=== PATIENT | male | born 1975 | race Caucasian/White ===

== ENCOUNTER 2023-01-12 14:15 | Outpatient (RCR) | payer OTHER, SELFPAY | END 2023-05-12 23:59 | disposition home or self-care (01) | PROVIDERS: PCP Internal Medicine; Visit Provider Family Medicine | DX: S43.002D Unspecified subluxation of left shoulder joint, subsequent encounter (principal); Z51.89 Encounter for other specified aftercare | CPT/HCPCS: 97110; 97112; 97140; 97161 ==

== ENCOUNTER 2024-04-01 11:54 | Emergency (ER) | payer OTHER, SELFPAY ==
[2024-04-01 12:05] VITALS: BP 121/82; PULSE 88; RESP 20; TEMP 36.9; O2SAT 95; BMI 23.0
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
[2024-04-01 12:42] LABS: HCO3 VBG 28 mmol/L (21-28); PCO2 VBG 44 mmHG (40-50); PO2 VBG 76.1 mmHG (25-47); pH VBG 7.423 (7.32-7.43)
[2024-04-01 12:50] LABS: Basophils Percent Auto 0.1 % (0.0-3.0); Eosinophils Percent Auto 0.8 % (0.0-7.0); Hematocrit 36.9 % (37.0-53.0); Hemoglobin* 12.5 gm/dL (13.5-17.5); Immature Granulocytes Pct Auto 0.1 %; Lymphocytes Percent Auto 9.3 % (20-44); Mean Corpuscular HGB Conc 34 gm/dL (32-36); Mean Corpuscular Hemoglobin 31 pg (26-34); Mean Corpuscular Volume 91 fL (80-100); Monocytes Percent Auto 7.6 % (0.0-11.0); Neutrophils Percent Auto 82.1 % (42.0-72.0); Platelet Count* 207 K/uL (140-440); RDW Coefficient of Variation % 12.8 % (11.5-15.5); Red Blood Count 4.07 m/uL (4.30-5.90); White Blood Count* 13.74 K/uL (4.50-11.00)
[2024-04-01 12:57] LABS: Slide Review Reflex No
[2024-04-01 13:04] LABS: Chloride* 105 mmol/L (96-114)
[2024-04-01 13:05] LABS: Sodium* 138 mmol/L (135-149)
[2024-04-01 13:07] LABS: Creatinine* 0.6 mg/dL (0.5-1.5); Est. Creatinine Clearance* 152.88; Estimated Glomerular Filt Rate 118 ml/min
[2024-04-01 13:08] LABS: Anion Gap 6 mEq/L (7-15); Blood Urea Nitrogen* 17 mg/dL (5-24); Calcium* 8.9 mg/dL (8.4-10.6); Carbon Dioxide* 27 mmol/L (20-32); Glucose* 132 mg/dL (60-115)
[2024-04-01 13:12] LABS: Hemoglobin A1C* 5.4 % (0-5.6)
[2024-04-01 13:27] LABS: Glucose, Point-of-Care* 87 mg/dl (60-115)
--- NOTE | 2024-04-01 13:32 | CRLHL7_ITS ---
For Patients: As a result of the Century Cures Act, medical imaging exams and procedure reports are released immediately into your electronic medical record. You may view this report before your referring provider. If you have questions, please contact your health care provider. Indication: Low back pain, right lower extremity weakness, paresthesias and leukocytosis Technique: Multiplanar, multisequence MR images of the lumbar spine were obtained without the administration of IV contrast. Comparison: CT lumbar spine October 30, 2015 Findings: The lumbar vertebral body heights are grossly maintained with minimal endplate Schmorl`s defects. The normal lordosis is preserved without significant spondylolisthesis. There is mild degenerative disc desiccation with disc height loss and disc protrusions. The vertebral bodies have grossly preserved marrow signal intensity. The conus medullaris terminates at the T12 level and is normal in signal and contour. Cystic changes of the kidneys are appreciated with otherwise preserved paraspinous soft tissues. L1-L2: There is a diffuse disc bulge with small foraminal protrusions. There is mild spinal canal narrowing with mild bilateral neural foraminal narrowing. L2-L3: There is a diffuse disc bulge with mild spinal canal effacement. There is mild bilateral neural foraminal narrowing. L3-L4: There is a diffuse disc bulge with mild spinal canal effacement. There is [id number] left and mild right neural foraminal narrowing. L4-L5: There is a diffuse disc bulge. There is mild bilateral neural foraminal narrowing. L5-S1: There is a diffuse disc bulge with a small central protrusion. There is no significant spinal canal stenosis or neural foraminal narrowing. Impression: Mild multilevel degenerative disc disease changes as described above without evidence of high-grade stenosis or marrow edema to suggest acute fracture. Dictated by Gianni Smith MD @ 04/01/2024 2:54:35 PM (Electronically Signed)
[2024-04-01 15:00] VITALS: BP 150/90; PULSE 90; RESP 18; O2SAT 96
[2024-04-01 15:21] LABS: Appearance Urine Clear (Clear); Bilirubin Urine Negative (Negative); Blood Urine Trace-intact (Negative); Color Urine Yellow (Yellow); Glucose Urine Negative (Negative); Ketones Urine Negative (Negative); Leukocyte Esterase Urine Negative (Negative); Nitrite Urine Negative (Negative); Protein Urine Negative (Negative); Urobilinogen Urine 0.2 (0.2-1.0)
[2024-04-01 15:32] LABS: RBC Urine 0-2 (0-2)
== END 2024-04-01 16:50 | disposition home or self-care (01) ==
PROVIDERS: Emergency Provider Emergency Medicine; PCP Family Medicine
DX: M54.50 Low back pain, unspecified (principal); D72.829 Elevated white blood cell count, unspecified; E16.2 Hypoglycemia, unspecified
CPT/HCPCS: 36415; 72148; 80048; 81001; 82803; 82947; 83036; 85025; 99283

== ENCOUNTER 2024-08-06 07:51 | Outpatient (CLI) | payer OTHER, SELFPAY | END 2024-08-06 07:52 | disposition home or self-care (01) | LOC: INJ CL 07:52 | PROVIDERS: PCP Family Medicine; Visit Provider Family Medicine | DX: M54.16 Radiculopathy, lumbar region (principal); M51.369 Other intervertebral disc degeneration, lumbar region without mention of lumbar back pain or lower extremity pain | CPT/HCPCS: 62323; J0702; Q9966 ==

== ENCOUNTER 2024-11-08 11:52 | Outpatient (CLI) | payer OTHER, SELFPAY ==
--- NOTE | 2024-11-08 12:51 | P.ANES_ITS ---
Anesthesia Charges Start Date/Time Anesthesia Start Date: 11/08/24 Anesthesia Start Time: 13:00 Stop Date/Time Anesthesia Stop Date: 11/08/24 Anesthesia Stop Time: 13:22 Coding CPT Codes CPT Codes: ANES UPR GI NDSC PX NOS - 77697 ([id number]) P2 - PATIENT W/MILD SYST DISEASE, QK - [place]HALT SURFACE HEATER OPERATOR 2-4 CNCRNT ANES PROC, QX - FILLER SHREDDER HELPER SVC W/ MD MED DIRECTION
--- NOTE | 2024-11-08 12:51 | W.ANESCHARGE ---
Anesthesia Charges Start Date/Time Anesthesia Start Date: 11/08/24 Anesthesia Start Time: 13:00 Stop Date/Time Anesthesia Stop Date: 11/08/24 Anesthesia Stop Time: 13:22 Coding CPT Codes CPT Codes: ANES UPR GI NDSC PX NOS - 94746 ([id number]) P2 - PATIENT W/MILD SYST DISEASE, QK - MIDDLE SCHOOL DIRECTOR 2-4 CNCRNT ANES PROC, QX - NOTE TAKER SVC W/ MD MED DIRECTION
--- NOTE | 2024-11-08 13:24 | P.ANES_ITS ---
Anesthesia Charges Start Date/Time Anesthesia Start Date: 11/08/24 Anesthesia Start Time: 13:00 Stop Date/Time Anesthesia Stop Date: 11/08/24 Anesthesia Stop Time: 13:22 Coding CPT Codes CPT Codes: ANES UPR GI NDSC PX NOS - 88742 ([id number]) P2 - PATIENT W/MILD SYST DISEASE, QK - TOLL TICKET CLERK 2-4 CNCRNT ANES PROC, QX - BUS ATTENDANT SVC W/ MD MED DIRECTION
--- NOTE | 2024-11-08 13:24 | W.ANESCHARGE ---
Anesthesia Charges Start Date/Time Anesthesia Start Date: 11/08/24 Anesthesia Start Time: 13:00 Stop Date/Time Anesthesia Stop Date: 11/08/24 Anesthesia Stop Time: 13:22 Coding CPT Codes CPT Codes: ANES UPR GI NDSC PX NOS - 33698 ([id number]) P2 - PATIENT W/MILD SYST DISEASE, QK - JOB TRAINER 2-4 CNCRNT ANES PROC, QX - CLINIC OFFICE COORDINATOR SVC W/ MD MED DIRECTION
== END 2024-11-08 11:53 | disposition home or self-care (01) ==
LOC: OP CLINIC 11:52
PROVIDERS: PCP Family Medicine; Visit Provider Internal Medicine Gastroenterology
DX: R10.13 Epigastric pain (principal); R11.2 Nausea with vomiting, unspecified; R63.4 Abnormal weight loss; K31.89 Other diseases of stomach and duodenum
CPT/HCPCS: 00731; 43239; 88305; J2704; J3490

== ENCOUNTER 2024-11-29 09:40 | Outpatient (CLI) | payer OTHER, SELFPAY ==
--- NOTE | 2024-11-29 11:56 | P.ANES_ITS ---
Anesthesia Charges Start Date/Time Anesthesia Start Date: 11/29/24 Anesthesia Start Time: 11:33 Stop Date/Time Anesthesia Stop Date: 11/29/24 Anesthesia Stop Time: 12:07 Coding CPT Codes CPT Codes: JOSÉ LWR INTST NDSC NOS - 05139 ([id number]) P2 - PATIENT W/MILD SYST DISEASE, QK - SENIOR JAVA PROGRAMMER 2-4 CNCRNT ANES PROC, QX - JAVASCRIPT UI DEVELOPER SVC W/ MD MED DIRECTION
--- NOTE | 2024-11-29 11:56 | W.ANESCHARGE ---
Anesthesia Charges Start Date/Time Anesthesia Start Date: 11/29/24 Anesthesia Start Time: 11:33 Stop Date/Time Anesthesia Stop Date: 11/29/24 Anesthesia Stop Time: 12:07 Coding CPT Codes CPT Codes: JOSÉ LWR INTST NDSC NOS - 53746 ([id number]) P2 - PATIENT W/MILD SYST DISEASE, QK - CRUSHER MACHINE OPERATOR 2-4 CNCRNT ANES PROC, QX - WOOD FINISHER SVC W/ MD MED DIRECTION
--- NOTE | 2024-11-29 12:10 | P.ANES_ITS ---
Anesthesia Charges Start Date/Time Anesthesia Start Date: 11/29/24 Anesthesia Start Time: 11:33 Stop Date/Time Anesthesia Stop Date: 11/29/24 Anesthesia Stop Time: 12:07 Coding CPT Codes CPT Codes: JOSÉ REYEZ INTST NDSC NOS - 09311 ([id number]) P2 - PATIENT W/MILD SYST DISEASE, QX - MAP MOUNTER SVC W/ MD MED DIRECTION, QK - EDUCATIONAL SPECIALIST 2-4 CNCRNT JOSÉ PROC
--- NOTE | 2024-11-29 12:10 | W.ANESCHARGE ---
Anesthesia Charges Start Date/Time Anesthesia Start Date: 11/29/24 Anesthesia Start Time: 11:33 Stop Date/Time Anesthesia Stop Date: 11/29/24 Anesthesia Stop Time: 12:07 Coding CPT Codes CPT Codes: JOSÉ REYEZ INTST NDSC NOS - 49771 ([id number]) P2 - PATIENT W/MILD SYST DISEASE, QX - CROCHETER SVC W/ MD MED DIRECTION, QK - BOX BRANDER 2-4 CNCRNT JOSÉ PROC
== END 2024-11-29 09:41 | disposition home or self-care (01) ==
LOC: OP CLINIC 09:40
PROVIDERS: PCP Family Medicine; Visit Provider Internal Medicine Gastroenterology
DX: Z12.11 Encounter for screening for malignant neoplasm of colon (principal); Z86.0109 Personal history of other colon polyps; K52.9 Noninfective gastroenteritis and colitis, unspecified; D12.2 Benign neoplasm of ascending colon; D12.5 Benign neoplasm of sigmoid colon; D12.8 Benign neoplasm of rectum
CPT/HCPCS: 00811; 00812; 36415; 45380; 45385; 82947; 88305; 93005; 99282; J2704

== ENCOUNTER 2024-11-29 09:55 | Emergency (ER) | payer OTHER, SELFPAY ==
--- OUTSIDE RECORDS SUMMARY | 2024-10-14 07:40 | XMS_ITS | Continuity of Care Document ---
Author Organization [facility] Address [address] [place] [address] Phone Care Team Providers Care Paper Sorter And Counter Name Role Phone Tess Irvin DNP Unavailable Unavailab le Allergies, Adverse Reactions, Alerts Substance Reaction Status Criticality venom-honey bee Active No Informati on lactose Active No Information Medications Medication Instructions Dosage Effective Dates (start - stop) Status Comments Auvelity 45 mg-105 mg tablet, extended release Take 1 Tablet by mouth once daily in the morning for 3 days, THEN 1 Tablet two times daily. - Active lidocaine 5 % topical patch Apply 1 patch to painful area of skin for up to 12 hours within a 24-hour period. - Active buspirone 15 mg tablet Take 0.5 Tablets (7.5 mg) by mouth two times daily for 7 days, THEN 1 Tablet (15 mg) two times daily for 7 days, THEN 2 Tablets (30 mg) two times daily. - Active fluvoxamine 100 mg tablet Take 2 Tablets (200 mg) by mouth once daily. - Active Lipitor 10 mg tablet take 3 tablet by oral route every day 30 MG - Active Topamax 25 mg tablet as needed - Active trazodone 50 mg tablet take 1 tablet before bed - Active FENOFIBRATE (unknown strength) Not Available - Active prednisone 20 mg tablet Take 1 Tablet (20 mg) by mouth three times daily with meals for 4 days, THEN 1 Tablet (20 mg) two times daily with meals for 4 days, THEN 1 Tablet (20 mg) once daily with a meal for 4 days. - No Longer Active topiramate 25 mg tablet take 1 tablet by mouth every evening for 1 week, then increase to 1 tablet twice daily - No Longer Active gabapentin 600 mg tablet take 2 tablet by oral route 3 times every day 1200 MG - No Longer Active RISPERIDONE (unknown strength) take 2 tablet by oral route 2 times every day Not Available - No Longer Active FISH OIL (unknown strength) Not Available - No Longer Active LIPITOR (unknown strength) Not Available - No Longer Active trazodone 50 mg tablet take 0.5 tablet by oral route at - No Longer Active Procedures Procedure Date OFFICE/OUTPATIENT VISIT, EST Drug Urine Toxology With Chromatography Drug test def 02-13 classes Foll-up eval q3mo opiod tx OFFICE/OUTPATIENT VISIT, EST Foll-up eval q3mo opiod tx OFFICE VISIT, EST TELEMEDICINE OFFICE VISIT, EST TELEMEDICINE Foll-up eval q3mo opiod tx OFFICE VISIT, EST TELEMEDICINE 20 Foll-up eval q3mo opiod tx OFFICE VISIT, EST TELEMEDICINE 20 Foll-up eval q3mo opiod tx Foll-up eval q3mo opiod tx OFFICE VISIT, EST TELEMEDICINE OFFICE VISIT, EST TELEMEDICINE 20 Foll-up eval q3mo opiod tx OFFICE VISIT, EST TELEMEDICINE 20 Foll-up eval q3mo opiod tx Foll-up eval q3mo opiod tx OFFICE VISIT, EST TELEMEDICINE 20 Foll-up eval q3mo opiod tx OFFICE VISIT, EST TELEMEDICINE Foll-up eval q3mo opiod tx OFFICE VISIT, EST TELEMEDICINE OFFICE/OUTPATIENT VISIT, EST OFFICE/OUTPATIENT VISIT, EST Drug Urine Toxology With Chromatography OFFICE/OUTPATIENT VISIT, EST OFFICE/OUTPATIENT VISIT, EST OFFICE/OUTPATIENT VISIT, EST OFFICE/OUTPATIENT VISIT, EST OFFICE/OUTPATIENT VISIT, EST OFFICE/OUTPATIENT VISIT, EST OFFICE/OUTPATIENT VISIT, EST OFFICE/OUTPATIENT VISIT, EST OFFICE/OUTPATIENT VISIT, EST OFFICE/OUTPATIENT VISIT, EST OFFICE/OUTPATIENT VISIT, EST OFFICE/OUTPATIENT VISIT, EST OFFICE CONSULTATION Advance Directives Directive Yes / No Effective Date File Name No Information Encounters Encounter Description Practice Location Reason(s) For Visit Diagnoses Date Provider Providers Copied on Encounter OFFICE/OUTPAT IENT VISIT, EST [facility], [address], [place], [id number] , [place] [phone] [facility] [place] Widespread pain (chief complaint) Chronic pain syndromeOther cervical disc degeneration, unspecified cervical regionPostlam inectomy syndrome, not elsewhere classifiedLon g term (current) use of opiate analgesicOthe r spondylosis, lumbar region Oct- 5 Albaro Pulido. [address] [facility] [address], [place], [place], [id number], [place]. tel:[phone] Primary Practice Provider: Rome Yadav [facility] [address] [place], [address]. tel:[phone] alist: Hawk Ramos, [facility] [address], [place], [address]. tel:[phone] [address] [place], [address]. tel:[phone] ring Provider: Rome Yadav [facility] [address] [place], [address]. tel:[phone] [facility], [address] [place] [address], [id number] , [place] [phone] [facility] No Information 5 Kim Muller. [address] [place] [address], [id number], [place]. tel:[phone] [place] [address] [facility], [address] [place] [address], [id number] , [place] tel:[phone] [facility] No Information 2 Patterson Artur. Burr, [address] [place], [address], [place]. tel:[phone] OFFICE/OUTPAT IENT VISIT, EST [facility], [address] [place] [address], [id number] , [place] [phone] [facility] Widespread pain (chief complaint) Chronic pain syndromeOther cervical disc degeneration, unspecified cervical regionPostlam inectomy syndrome, not elsewhere classifiedLon g term (current) use of opiate analgesic 2 Yesenia Siddiqui. Burr, [address] [place], [address], [place]. tel:[phone] Primary Practice Provider: Rome Yadav, [facility] [address] [place], [address]. tel:[phone] alist: Hawk Ramos, [facility] [address], [address]. tel:[phone], [address]. tel:[phone] ring Provider: Zeeshan Enriquez, [address] [place] [address], [address]. tel:[phone] OFFICE VISIT, EST TELEMEDICINE [facility], [address] [place] [address], [id number] , [place] tel:[phone] [facility] Widespread pain (chief complaint) Chronic pain syndromeOther cervical disc degeneration, unspecified cervical regionLong term (current) use of opiate analgesicPost laminectomy syndrome, not elsewhere classified 1 Yesenia Leview, [address] [place], [address], [place]. tel:[phone] Referring Provider: Zeeshan Enriquez, [address] [place] [address], [address]. [phone] OFFICE VISIT, EST TELEMEDICINE [facility], [address] [place] [id number] , [place] tel:[phone] [facility] Widespread pain (chief complaint) Chronic pain syndromeOther cervical disc degeneration, unspecified cervical regionLong term (current) use of opiate analgesicPost laminectomy syndrome, not elsewhere classified 0 Yesenia Leview, [address] [place], [address], [place]. tel:[phone] Referring Provider: Zeeshan Enriquez, [address] [place] [address], [address]. [phone] OFFICE VISIT, EST TELEMEDICINE [facility], [address] [place] [address], [id number] , [place] [phone] [facility] Widespread pain (chief complaint) Other cervical disc degeneration, unspecified cervical regionChronic pain syndromeLong term (current) use of opiate analgesicPost laminectomy syndrome, not elsewhere classified 0 Yesenia Leview, [address] [place], [address], [place]. tel:[phone] Referring Provider: Zeeshan Enriquez, [address] [place] [address], [address]. tel:[phone] OFFICE VISIT, EST TELEMEDICINE [facility], [address] [place] [address], [id number] , [place] [phone] [facility] Widespread pain (chief complaint) Postlaminecto my syndrome, not elsewhere classifiedOth er cervical disc degeneration, unspecified cervical regionChronic pain syndromeLong term (current) use of opiate analgesic 0 Patterson Dan. Pittman, [address] [place], [address], [place]. tel:[phone] Referring Provider: Zeeshan Enriquez, [address] [place] [address], [address]. tel:[phone] OFFICE VISIT, EST TELEMEDICINE [facility], [address] [place] [address], [id number] , [place] tel:[phone] [facility] Widespread pain (chief complaint) Postlaminecto my syndrome, not elsewhere classifiedOth er cervical disc degeneration, unspecified cervical regionChronic pain syndromeLong term (current) use of opiate analgesic 0 Patterson Dan. Pittman, [address] [place], [address], [place]. tel:[phone] Referring Provider: Zeeshan Enriquez, [address] [place] [address], [address]. tel:[phone] OFFICE VISIT, EST TELEMEDICINE [facility], [address] [place] [address], [id number] , [place] tel:[phone] [facility] Widespread pain (chief complaint) Postlaminecto my syndrome, not elsewhere classifiedOth er cervical disc degeneration, unspecified cervical regionChronic pain syndromeLong term (current) use of opiate analgesic 0 Patterson Dan. Pittman, [address] [place], [address], [place]. tel:[phone] Referring Provider: Zeeshan Enriquez, [address] [place] [address], [address]. tel:[phone] OFFICE VISIT, EST TELEMEDICINE [facility], [address] [place] [address], [id number] , [place] tel:[phone] [facility] Widespread pain (chief complaint) Postlaminecto my syndrome, not elsewhere classifiedOth er cervical disc degeneration, unspecified cervical regionChronic pain syndromeLong term (current) use of opiate analgesic Dec-2 0- 0 Patterson Dan. Pittman, [address] [place], [address], [place]. tel:[phone] Referring Provider: Zeeshan Enriquez, [address] [place] [address], [address]. tel:[phone] OFFICE VISIT, EST TELEMEDICINE [facility], [address] [place] [address], [id number] , [place] tel:[phone] [facility] Widespread pain (chief complaint) Postlaminecto my syndrome, not elsewhere classifiedOth er cervical disc degeneration, unspecified cervical regionChronic pain syndromeLong term (current) use of opiate analgesic 0 Patterson Artur. Burr, [address] [place], [address], [place]. tel:[phone] Referring Provider: Zeeshan Enriquez, [address] [place] [address], [address]. tel:[phone] OFFICE VISIT, EST TELEMEDICINE [facility], [address] [place] [address], [id number] , [place] tel:[phone] [facility] Widespread pain (chief complaint) Postlaminecto my syndrome, not elsewhere classifiedOth er cervical disc degeneration, unspecified cervical regionChronic pain syndromeLong term (current) use of opiate analgesic 0 Patterson Artur. Burr, [address] [place], [address], [place]. tel:[phone] Primary Practice Provider: Rome Yadav MD, [facility] [address] [place], [address]. tel:[phone] alist: Hawk Ramos, [facility] [address] [place] [address], [place], [address]. tel:[phone] Coronado MD, [address], [address]. tel:[phone] OFFICE VISIT, EST TELEMEDICINE [facility], [address] [place] [address], [id number] , [place] tel:[phone] [facility] Widespread pain (chief complaint) Postlaminecto my syndrome, not elsewhere classifiedOth er cervical disc degeneration, unspecified cervical regionChronic pain syndromeLong term (current) use of opiate analgesic Oct- 0 Patterson Artur. Burr, [address] [place], [place], [facility], [place]. tel:[phone] Primary Practice Provider: Rome Yadav MD, [facility] [address] [place], [address]. tel:[phone] alist: Hawk Ramos, [facility] [address] [place] [address], [address]. tel:[phone] Coronado MD, [address], [address]. tel:[phone] ring Provider: Zeeshan Enriquez, [address] [place] [address], [address]. tel:[phone] OFFICE/OUTPAT IENT VISIT, [facility], [address] [place] [address], [id number] , [place] tel:[phone] [facility] Widespread pain (chief complaint) Other custodial (current) drug therapyPostla minectomy syndrome, not elsewhere classifiedOth er cervical disc degeneration, unspecified cervical regionChronic pain syndrome Aug- 0 Yesenia Siddiqui. Burr, [address] [place], [address], [place]. tel:[phone] Primary Practice Provider: Rome Yadav MD, [facility] [address] [place], [address]. tel:[phone] alist: Hawk Ramos, [facility] [address] [place] [address], [address]. tel:[phone] Coronado MD, [address], [address]. tel:[phone] ring Provider: Zeeshan Enriquez, [address] [place] [address], [address]. tel:[phone] OFFICE/OUTPAT IENT VISIT, EST [facility], [address] [place] [address], [id number] , [place] tel:[phone] [facility] Widespread pain (chief complaint) Postlaminecto my syndrome, not elsewhere classifiedOth er cervical disc degeneration, unspecified cervical regionChronic pain syndromeOther custodial (current) drug therapy 0 Yesenia Siddiqui. Burr, [address] [place], [address], [place]. tel:[phone] Primary Practice Provider: Rome Yadav MD, [facility] [address] [place], [address]. tel:[phone] alist: Hawk Ramos, [facility] [address] [place] [address], [place], [address]. tel:[phone] Coronado MD, [address], [address]. tel:[phone] ring Provider: Zeeshan Enriquez, [address] [place] [address], [address]. tel:[phone] [facility], [address] [place] [address], [id number] , [place] tel:[phone] [facility] No Information 0 9 Gordon Jordan. [address] [place] [address], [id number], [place]. tel:[phone] OFFICE/OUTPAT IENT VISIT, EST [facility], [address] [place] [address], [id number] , [place] tel:[phone] [facility] [place] Widespread pain (chief complaint) Postlaminecto my syndrome, not elsewhere classifiedOth er cervical disc degeneration, unspecified cervical regionChronic pain syndromeOther local company intermodal truck driver (current) drug therapy 9 Gordon Jordan. [address] [place] [address], [id number], [place]. tel:[phone] Primary Practice Provider: Rome Yadav MD, [facility] [address] [place], [address]. tel:[phone] alist: Hawk Ramos, [facility] [address] [place] [address], [address]. tel:[phone] Coronado MD, [address], [address]. tel:[phone] ring Provider: Zeeshan Enriquez, [address] [place] [address], [address]. tel:[phone] OFFICE/OUTPAT IENT VISIT, [facility], [address] [place] [address], [id number] , [place] tel:[phone] [facility] Widespread pain (chief complaint) Other cervical disc degeneration, unspecified cervical regionPostlam inectomy syndrome, not elsewhere classifiedChr onic pain syndrome Azar- 8 Kim Muller. [address] [place] [address], [id number], [place]. tel:[phone] Primary Practice Provider: Rome Yadav MD, [facility] [address] [place], [address]. tel:[phone] alist: Hawk Ramos, [facility] [address] [place] [address], [address]. tel:[phone], [address], [address].Refer ring Provider: Zeeshan Enriquez, [address] [place] [address], [address]. tel:[phone] OFFICE/OUTPAT IENT VISIT, [facility], [address] [place] [address], [id number] , [place] tel:[phone] [facility] Widespread pain (chief complaint) Postlaminecto my syndrome, not elsewhere classifiedChr onic pain syndromeOther cervical disc degeneration, unspecified cervical region Gordon Jordan. [address] [place] [address], [id number], [place]. tel:[phone] Specialist: Hawk Ramos, [facility] [address] [place] [address], [address]. tel:[phone], [address], [address].Refer ring Provider: Zeeshan Enriquez, [address] [place] [address], [address]. tel:[phone] OFFICE/OUTPAT IENT VISIT, EST [facility], [address] [place] [address], [id number] , [place] tel:[phone] [facility] Widespread pain (chief complaint) Postlaminecto my syndrome, not elsewhere classifiedOth er cervical disc degeneration, unspecified cervical regionChronic pain syndrome Apr- Gordon Jordan. [address] [place] [address], [id number], [place]. tel:[phone] Attending Physician: Rome Yadav, [facility] [address] [place], [address]. tel:[phone] alist: Hawk Ramos, [facility] [address] [place] [address], [address]. tel:[phone], [address], [address].Refer ring Provider: Zeeshan Enriquez, [address] [place] [address], [address]. tel:[phone] OFFICE/OUTPAT IENT VISIT, EST [facility], [address] [place] [address], [id number] , [place] tel:[phone] [facility] Widespread pain (chief complaint) Postlaminecto my syndrome, not elsewhere classifiedOth er cervical disc degeneration, unspecified cervical regionChronic pain syndrome Mar- Gordon Jordan. [address] [place] [address], [id number], [place]. tel:[phone] Attending Physician: Rome Yadav [facility] [address] [place], [address]. tel:[phone] alist: Hawk Ramos, [facility] [address] [place] [address], [address]. tel:[phone], [address], [address].Refer ring Provider: Zeeshan Enriquez, [address] [place] [address], [address]. tel:[phone] OFFICE/OUTPAT IENT VISIT, EST [facility], [address] [place] [address], [id number] , [place] tel:[phone] [facility] Widespread pain (chief complaint) Postlaminecto my syndrome, not elsewhere classifiedOth er cervical disc degeneration, unspecified cervical regionChronic pain syndrome Gordon Overbeke Nikki. [address] [place] [address], [id number], [place]. tel:[phone] Attending Physician: Rome Yadav [facility] [address] [place], [address]. tel:[phone] alist: Hawk Ramos, [facility] [place] [address] [place] [address], [address]. tel:[phone], [address], [address].Refer ring Provider: Zeeshan Enriquez, [address] [place] [address], [address]. tel:[phone] OFFICE/OUTPAT IENT VISIT, EST [facility], [address] [place] [address], [id number] , [place] tel:[phone] [facility] Widespread pain (chief complaint) Postlaminecto my syndrome, not elsewhere classifiedOth er cervical disc degeneration, unspecified cervical regionChronic pain syndrome [place] Overbeke Nikki. [address] [place] [address], [id number], [place]. tel:[phone] Referring Provider: Zeeshan Enriquez, [address] [place] [address], [address]. tel:[phone] OFFICE/OUTPAT IENT VISIT, [facility], [address] [place] [address], [id number] , [place] tel:[phone] [facility] Widespread pain (chief complaint) Myositis, unspecifiedCh ronic pain syndromePostl aminectomy syndrome, not elsewhere classifiedTro chanteric bursitis, right hip 6 Mick Barr. [address] [place] [address], [id number], [place]. tel:[phone] Attending Physician: Rome Yadav, [facility] [address] [place], [address]. tel:[phone] alist: Hawk Ramos, [facility] [address] [place] [address], [place], [address]. tel:[phone], [address], [place], [address].Refer ring Provider: Zeeshan Enriquez, [address] [place] [address], [address]. tel:[phone] OFFICE/OUTPAT IENT VISIT, [facility], [address] [place] [address], [id number] , [place] tel:[phone] [facility] Widespread pain (chief complaint) Myositis, unspecifiedCh ronic pain syndromePostl aminectomy syndrome, not elsewhere classified 0 6 Gordon Jordan. [address] [place] [address], [id number], [place]. tel:[phone] Referring Provider: Zeeshan Enriquez, [address] [place] [address], [address]. tel:[phone] OFFICE/OUTPAT IENT VISIT, [facility], [address] [place] [address], [id number] , [place] tel:[phone] [facility] [place] Widespread pain (chief complaint) Myositis, unspecifiedCh ronic pain syndromePostl aminectomy syndrome, not elsewhere classified Gordon Jordan. [address] [place] [address], [id number], [place]. tel:[phone] Referring Provider: Zeeshan Enriquez, [address] [place] [address], [address]. tel:[phone] OFFICE/OUTPAT IENT VISIT, EST [facility], [address] [place] [address], [id number] , [place] [phone] [facility] Widespread pain (chief complaint) Other cervical disc degeneration, unspecified cervical regionOther intervertebra l disc degeneration, lumbar regionChronic pain syndrome 6 Gordon Jordan. [address] [place] [address], [id number], [place]. tel:[phone] Attending Physician: Rome Yadav [facility] [address] [place], [address]. tel:[phone] alist: Hawk Ramos, [facility] [address] [place] [address], [address]. tel:[phone], [address], [address].Refer ring Provider: Zeeshan Enriquez, [address] [place] [address], [address]. tel:[phone] OFFICE/OUTPAT IENT VISIT, EST [facility], [address] [place] [address], [id number] , [place] tel:[phone] [facility] [place] Back Pain (chief complaint) Degeneration of cervical intervertebra l discDegenerat ion of lumbar or lumbosacral intervertebra l discMyalgia and myositis, unspecified No Information Attending Physician: Rome Yadav [facility] [address] [place], [address]. tel:[phone] alist: Hawk Ramos, [facility] [address] [place] [address] [address], [place], [address]. tel:[phone] Provider: Zeeshan Enriquez, [address] [place], [address]. tel:[phone] OFFICE CONSULTATION [facility], [address] [place] [address], [id number] , tel:[phone] [facility] [facility] [place] Back Pain (chief complaint) Degeneration of cervical intervertebra l discPostlamin ectomy syndrome of cervical regionDegener ation of lumbar or lumbosacral intervertebra l discMyalgia and myositis, unspecified 5 No Information Attending Physician: Rome Yadav, [address], [place], [address]. tel:[phone] alist: Hawk Ramos, [facility] [address] [place] [address] [address], [place], [address]. tel:[phone] Provider: Zeeshan Enriquez, [address] [place] [address], [address]. tel:[phone] Family History Family Member Type Diagnosis Age At Onset Father Problem (finding) Back pain Father Problem (finding) Neck pain Payers Payer name Insurance type Covered republican ID James ojeda(s) [facility] [id number] Social History Type Description Quantity Date Captured Comments Alcohol Use Details No Caffeine Use Details Unknown Tobacco Use Status Current non-smoker Smoking Status Never smoker Non-Smoking Tobacco Use Details : No Details Available : No Details Available Sex Male Vital Signs Date / Time: Height Weight BMI Pulse Rate Blood Pressure Temperature Respiratory Rate Body Surface Area Head Circumference Head Circ. Percentile Wt./Cipriano. Percentile BMI percentile Pulse Ox Inhaled Ox 12:32 PM 70.00 in 75.478 kg (166.40 lbs) 23.8 8 kg/m eter (2) Chief Complaint And Reason For Visit From encounter dated '10/14/2024 12:40'. Widespread pain (chief complaint). Description: Severity level is 8. Duration: chronic. The patientdescribes it as sharp, achy and tingling. The problem is worsening. Symptom is aggravated by sitting, standing, walking, bending and reaching. Relieving factors include Rx Meds and pool therapy. Reason For Referral Reason For Referral No Information Plan Of Treatment Date Type Action Status Goal Update Social History. Due o n due Goal PHQ-9. Due on du e Goal Height. Due on d ue Goal Tobacco screening. Due on Ap due Goal FIT. Due on due Goal Weight. Due on d ue Goal CT-Colonography. Due on due Goal Zoster vaccine (1st). Due on due Goal FIT-DNA. Due on due Goal Hepatitis C screening. Due o n due Goal Tobacco Use. Due on due Goal Medication Recon ciliation. Due on due Goal Review Allergy List. Due on due Goal OARS. Due on due Goal Unhealthy drug u se screening. Due on due Goal DIGESTER COOK Paperwork. Due on due Goal Order Annual PT. Due on due Goal Creatinine. Due on 25 due Goal DIRECTOR OF EMPLOYER SERVICES Scanned. Due on due Goal ALT (SGPT). Due on due Goal UDT. Due on due Goal AST (SGOT). Due on due Goal Order Annual PT. Due on due Goal ALT (SGPT). Due on due Goal DIRECTOR OF EMPLOYER SERVICES Scanned. Due on due Goal UDT. Due on due Goal Creatinine. Due on due Goal OARS. Due on due Goal AST (SGOT). Due on due Goal DIGESTER COOK Paperwork. Due on due Goal Review Allergy List. Due on due Goal PHQ-9. Due on du e Goal Weight. Due on d ue Goal Unhealthy drug u se screening. Due on due Goal Lipid panel. Due on due Goal Tobacco Use. Due on due Goal Hepatitis C screening. Due o n due Goal Height. Due on d ue Goal Medication Recon ciliation. Due on due Goal Update Social History. Due o n due Goal Height. Due on d ue Goal Unhealthy drug u se screening. Due on due Goal Review Allergy List. Due on due Goal AST (SGOT). Due on due Goal Lipid panel. Due on due Goal ALT (SGPT). Due on due Goal UDT. Due on due Goal PHQ-9. Due on du e Goal Order Annual PT. Due on due Goal DIRECTOR OF EMPLOYER SERVICES Scanned. Due on due Goal Weight. Due on d ue Goal Creatinine. Due on due Goal OARS. Due on due Goal Tobacco Use. Due on due Goal Update Social History. Due o n due Goal Hepatitis C screening. Due o n due Goal Medication Recon ciliation. Due on due Goal DIGESTER COOK Paperwork. Due on due Referral Ordered: [facility] (related to Myositis, unspecified) ordered Referral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
--- OUTSIDE RECORDS SUMMARY | 2024-10-14 07:40 | XMS_ITS | Continuity of Care Document ---
Author Organization [facility] Address [address] [facility] [place] [address] Phone Care Team Providers Care Business Objects Name Role Phone Tess Irvin DNP Unavailable [...] Copied on Encounter OFFICE/OUTPAT IENT VISIT, EST [facility], [address] [place], [place], [id number] , [place] [phone] [facility] [place] Widespread pain (chief complaint) Chronic pain syndromeOther cervical disc degeneration, unspecified cervical regionPostlam inectomy syndrome, not elsewhere classifiedLon g term (current) use of opiate analgesicOthe r spondylosis, lumbar region Oct- 5 Albaro Pulido. [address] [facility] [address], [place], [place], [id number], [place]. tel:[phone] Primary Practice Provider: Rome Yadav [facility] [address] [place], [address]. tel:[phone] alist: Hawk Ramos, [facility] [address], [place], [address]. tel:[phone] [facility] [address] [place], [address]. tel:[phone] ring Provider: Rome Yadav [facility] [address] [place], [address]. tel:[phone] [facility], [address] [place] [address], [id number] , [place] [phone] [facility] No Information 5 Kim Muller. [address] [place] [address], [id number], [place]. tel:[phone] [place] [address] [facility], [address] [place] [address], [id number] , [place] tel:[phone] [facility] No Information 2 Patterson Artur. [place], [address] [place], [address], [place]. tel:[phone] OFFICE/OUTPAT IENT VISIT, EST [facility], [address] [place] [address], [id number] , [place] [phone] [facility] Widespread pain (chief complaint) Chronic pain syndromeOther cervical disc degeneration, unspecified cervical regionPostlam inectomy syndrome, not elsewhere classifiedLon g term (current) use of opiate analgesic 2 Yesenia Siddiqui. [place], [address] [place], [address], [place]. tel:[phone] Primary Practice Provider: Rome Yadav, [facility] [address] [place], [address]. tel:[phone] alist: Hawk Ramos, [facility] [address], [address]. tel:[phone], [address]. tel:[phone] ring Provider: Zeeshan Enriquez, [address] [place] [address], [address]. tel:[phone] OFFICE VISIT, EST TELEMEDICINE [facility], [address] [place] [address], [id number] , [place] tel:[phone] [facility] Widespread pain (chief complaint) Chronic pain syndromeOther cervical disc degeneration, unspecified cervical regionLong term (current) use of opiate analgesicPost laminectomy syndrome, not elsewhere classified 1 Yesenia Leview, [address] [place], [address], [place]. tel:[phone] Referring Provider: Zeeshan Enriquez, [address] [place] [address], [address]. [phone] OFFICE VISIT, EST TELEMEDICINE [facility], [address] [place] [address], [id number] , [place] tel:[phone] [facility] Widespread pain (chief complaint) Chronic pain syndromeOther cervical disc degeneration, unspecified cervical regionLong term (current) use of opiate analgesicPost laminectomy syndrome, not elsewhere classified 0 Yesenia Leview, [address] [place], [address], [place]. tel:[phone] Referring Provider: Zeeshan Enriquez, [address] [place] [address], [address]. [phone] OFFICE VISIT, EST TELEMEDICINE [facility], [address] [place] [address], [id number] , [place] [phone] [facility] Widespread pain (chief complaint) Other cervical disc degeneration, unspecified cervical regionChronic pain syndromeLong term (current) use of opiate analgesicPost laminectomy syndrome, not elsewhere classified 0 Yesenia Leview, [address] [place], [address], [place]. tel:[phone] Referring Provider: Zeeshan Enriquez, [address] [place] [address], [address]. tel:[phone] OFFICE VISIT, EST TELEMEDICINE [facility], [address] [place] [address], [id number] , [place] [phone] [facility] Widespread pain (chief complaint) Postlaminecto my syndrome, not elsewhere classifiedOth er cervical disc degeneration, unspecified cervical regionChronic pain syndromeLong term (current) use of opiate analgesic 0 Patterson Dan. [place], [address] [place], [address], [place]. tel:[phone] Referring Provider: Zeeshan Enriquez, [address] [place] [address], [address]. tel:[phone] OFFICE VISIT, EST TELEMEDICINE [facility], [address] [place] [address], [id number] , [place] tel:[phone] [facility] Widespread pain (chief complaint) Postlaminecto my syndrome, not elsewhere classifiedOth er cervical disc degeneration, unspecified cervical regionChronic pain syndromeLong term (current) use of opiate analgesic 0 Patterson Dan. [place], [address] [place], [address], [place]. tel:[phone] Referring Provider: Zeeshan Enriquez, [address] [place] [address], [address]. tel:[phone] OFFICE VISIT, EST TELEMEDICINE [facility], [address] [place] [address], [id number] , [place] tel:[phone] [facility] Widespread pain (chief complaint) Postlaminecto my syndrome, not elsewhere classifiedOth er cervical disc degeneration, unspecified cervical regionChronic pain syndromeLong term (current) use of opiate analgesic 0 Patterson Dan. [place], [address] [place], [address], [place]. tel:[phone] Referring Provider: Zeeshan Enriquez, [address] [place] [address], [address]. tel:[phone] OFFICE VISIT, EST TELEMEDICINE [facility], [address] [place] [address], [id number] , [place] tel:[phone] [facility] Widespread pain (chief complaint) Postlaminecto my syndrome, not elsewhere classifiedOth er cervical disc degeneration, unspecified cervical regionChronic pain syndromeLong term (current) use of opiate analgesic Dec-2 0- 0 Patterson Dan. [place], [address] [place], [address], [place]. tel:[phone] Referring Provider: Zeeshan Enriquez, [address] [place] [address], [address]. tel:[phone] OFFICE VISIT, EST TELEMEDICINE [facility], [address] [place] [address], [id number] , [place] tel:[phone] [facility] Widespread pain (chief complaint) Postlaminecto my syndrome, not elsewhere classifiedOth er cervical disc degeneration, unspecified cervical regionChronic pain syndromeLong term (current) use of opiate analgesic 0 Patterson Artur. [place], [address] [place], [address], [place]. tel:[phone] Referring Provider: Zeeshan Enriquez, [address] [place] [address], [address]. tel:[phone] OFFICE VISIT, EST TELEMEDICINE [facility], [address] [place] [address], [id number] , [place] tel:[phone] [facility] Widespread pain (chief complaint) Postlaminecto my syndrome, not elsewhere classifiedOth er cervical disc degeneration, unspecified cervical regionChronic pain syndromeLong term (current) use of opiate analgesic 0 Patterson Artur. [place], [address] [place], [address], [place]. tel:[phone] Primary Practice Provider: Rome Yadav MD, [facility] [address] [place], [address]. tel:[phone] alist: Hawk Ramos, [facility] [address] [place] [address], [place], [address]. tel:[phone] Coronado MD, [address], [address]. tel:[phone] OFFICE VISIT, EST TELEMEDICINE [facility], [address] [place] [address], [id number] , [place] tel:[phone] [facility] Widespread pain (chief complaint) Postlaminecto my syndrome, not elsewhere classifiedOth er cervical disc degeneration, unspecified cervical regionChronic pain syndromeLong term (current) use of opiate analgesic Oct- 0 Patterson Artur. [place], [address] [place], [place], [facility], [place]. tel:[phone] Primary Practice Provider: Rome Yadav MD, [facility] [address] [place], [address]. tel:[phone] alist: Hawk Ramos, [facility] [address] [place] [address], [address]. tel:[phone] Coronado MD, [address], [address]. tel:[phone] ring Provider: Zeeshan Enriquez, [address] [place] [address], [address]. tel:[phone] OFFICE/OUTPAT IENT VISIT, [facility], [address] [place] [address], [id number] , [place] tel:[phone] [facility] Widespread pain (chief complaint) Other usp (current) drug therapyPostla minectomy syndrome, not elsewhere classifiedOth er cervical disc degeneration, unspecified cervical regionChronic pain syndrome Aug- 0 Yesenia Siddiqui. [place], [address] [place], [address], [place]. tel:[phone] Primary Practice Provider: Rome Yadav MD, [facility] [address] [place], [address]. tel:[phone] alist: Hawk Ramos, [facility] [address] [place] [address], [address]. tel:[phone] Coronado MD, [address], [address]. tel:[phone] ring Provider: Zeeshan Enriquez, [address] [place] [address], [address]. tel:[phone] OFFICE/OUTPAT IENT VISIT, EST [facility], [address] [place] [address], [id number] , [place] tel:[phone] [facility] Widespread pain (chief complaint) Postlaminecto my syndrome, not elsewhere classifiedOth er cervical disc degeneration, unspecified cervical regionChronic pain syndromeOther usp (current) drug therapy 0 Yesenia Siddiqui. [place], [address] [place], [address], [place]. tel:[phone] Primary Practice Provider: Rome Yadav MD, [facility] [address] [place], [address]. tel:[phone] alist: Hawk Ramos, [facility] [address] [place] [address], [place], [address]. tel:[phone] Coronado MD, [address], [address]. tel:[phone] ring Provider: Zeeshan Enriquez, [address] [place] [address], [address]. tel:[phone] [facility], [address] [place] [address], [id number] , [place] tel:[phone] [facility] No Information 0 9 Gordon Jordan. [address] [place] [address], [id number], [place]. tel:[phone] OFFICE/OUTPAT IENT VISIT, EST [facility], [address] [place] [address], [id number] , [place] tel:[phone] [facility] [place] Widespread pain (chief complaint) Postlaminecto my syndrome, not elsewhere classifiedOth er cervical disc degeneration, unspecified cervical regionChronic pain syndromeOther long haul truck driver (current) drug therapy 9 Gordon Jordan. [address] [place] [address], [id number], [place]. tel:[phone] Primary Practice Provider: Rome Yadav MD, [facility] [address] [place], [address]. tel:[phone] alist: Hawk Ramos, [facility] [address] [place] [address], [address]. tel:[phone] Coronado MD, [address], [address]. tel:[phone] ring Provider: Zeeshan Enriquez, [address] [place] [address], [address]. tel:[phone] OFFICE/OUTPAT IENT VISIT, [facility], [address] [place] [address], [id number] , [place] tel:[phone] [facility] Widespread pain (chief complaint) Other cervical disc degeneration, unspecified cervical regionPostlam inectomy syndrome, not elsewhere classifiedChr onic pain syndrome Azar- 8 Kim Muller. [address] [place] [address], [id number], [place]. tel:[phone] Primary Practice Provider: Rome Yadav MD, [facility] [address] [place], [address]. tel:[phone] alist: Hawk Ramos, [facility] [address] [place] [address], [address]. tel:[phone], [address], [address].Refer ring Provider: Zeeshan Enriquez, [address] [place] [address], [address]. tel:[phone] OFFICE/OUTPAT IENT VISIT, [facility], [address] [place] [address], [id number] , [place] tel:[phone] [facility] Widespread pain (chief complaint) Postlaminecto my syndrome, not elsewhere classifiedChr onic pain syndromeOther cervical disc degeneration, unspecified cervical region Gordon Jordan. [address] [place] [address], [id number], [place]. tel:[phone] Specialist: Hawk Ramos, [facility] [address] [place] [address], [address]. tel:[phone], [address], [address].Refer ring Provider: Zeeshan Enriquez, [address] [place] [address], [address]. tel:[phone] OFFICE/OUTPAT IENT VISIT, EST [facility], [address] [place] [address], [id number] , [place] tel:[phone] [facility] Widespread pain (chief complaint) Postlaminecto my syndrome, not elsewhere classifiedOth er cervical disc degeneration, unspecified cervical regionChronic pain syndrome Apr- Gordon Jordan. [address] [place] [address], [id number], [place]. tel:[phone] Attending Physician: Rome Yadav, [facility] [address] [place], [address]. tel:[phone] alist: Hawk Ramos, [facility] [address] [place] [address], [address]. tel:[phone], [address], [address].Refer ring Provider: Zeeshan Enriquez, [address] [place] [address], [address]. tel:[phone] OFFICE/OUTPAT IENT VISIT, EST [facility], [address] [place] [address], [id number] , [place] tel:[phone] [facility] Widespread pain (chief complaint) Postlaminecto my syndrome, not elsewhere classifiedOth er cervical disc degeneration, unspecified cervical regionChronic pain syndrome Mar- Gordon Jordan. [address] [place] [address], [id number], [place]. tel:[phone] Attending Physician: Rome Yadav [facility] [address] [place], [address]. tel:[phone] alist: Hawk Ramos, [facility] [address] [place] [address], [address]. tel:[phone], [address], [address].Refer ring Provider: Zeeshan Enriquez, [address] [place] [address], [address]. tel:[phone] OFFICE/OUTPAT IENT VISIT, EST [facility], [address] [place] [address], [id number] , [place] tel:[phone] [facility] Widespread pain (chief complaint) Postlaminecto my syndrome, not elsewhere classifiedOth er cervical disc degeneration, unspecified cervical regionChronic pain syndrome Gordon Overbeke Nikki. [address] [place] [address], [id number], [place]. tel:[phone] Attending Physician: Rome Yadav [facility] [address] [place], [address]. tel:[phone] alist: Hawk Ramos, [facility] [place] [address] [place] [address], [address]. tel:[phone], [address], [address].Refer ring Provider: Zeehsan Enriquez, [address] [place] [address], [address]. tel:[phone] OFFICE/OUTPAT IENT VISIT, EST [facility], [address] [place] [address], [id number] , [place] tel:[phone] [facility] Widespread pain (chief complaint) Postlaminecto my syndrome, not elsewhere classifiedOth er cervical disc degeneration, unspecified cervical regionChronic pain syndrome Van Overbeke Nikki. [address] [place] [address], [id number], [place]. tel:[phone] Referring Provider: Zeeshan Enriquez, [address] [place] [address], [address]. tel:[phone] OFFICE/OUTPAT IENT VISIT, [facility], [address] [place] [address], [id number] , [place] tel:[phone] [facility] Widespread pain (chief complaint) Myositis, unspecifiedCh ronic pain syndromePostl aminectomy syndrome, not elsewhere classifiedTro chanteric bursitis, right hip 6 Mick Barr. [address] [place] [address], [id number], [place]. tel:[phone] Attending Physician: Rome Yadav, [facility] [address] [place], [address]. tel:[phone] alist: Hawk Ramos, [facility] [address] [place] [address], [place], [address]. tel:[phone], [address], [place], [address].Refer ring Provider: Zeeshan Enriquez, [address] [place] [address], [address]. tel:[phone] OFFICE/OUTPAT IENT VISIT, [facility], [address] [place] [address], [id number] , [place] tel:[phone] [facility] Widespread pain (chief complaint) Myositis, unspecifiedCh ronic pain syndromePostl aminectomy syndrome, not elsewhere classified 0 6 Gordon Jordan. [address] [place] [address], [id number], [place]. tel:[phone] Referring Provider: Zeeshan Enriquez, [address] [place] [address], [address]. tel:[phone] OFFICE/OUTPAT IENT VISIT, [facility], [address] [place] [address], [id number] , [place] tel:[phone] [facility] [place] Widespread pain (chief complaint) Myositis, unspecifiedCh ronic pain syndromePostl aminectomy syndrome, not elsewhere classified Gordon Jordan. [address] [place] [address], [id number], [place]. tel:[phone] Referring Provider: Zeeshan Enriquez, [address] [place] [address], [address]. tel:[phone] OFFICE/OUTPAT IENT VISIT, EST [facility], [address] [place] [address], [id number] , [place] [phone] [facility] Widespread pain (chief complaint) Other cervical disc degeneration, unspecified cervical regionOther intervertebra l disc degeneration, lumbar regionChronic pain syndrome 6 Gordon Jordan. [address] [place] [address], [id number], [place]. tel:[phone] Attending Physician: Rome Yadav [facility] [address] [place], [address]. tel:[phone] alist: Hawk Ramos, [facility] [address] [place] [address], [address]. tel:[phone], [address], [address].Refer ring Provider: Zeeshan Enriquez, [address] [place] [address], [address]. tel:[phone] OFFICE/OUTPAT IENT VISIT, EST [facility], [address] [place] [address], [id number] , [place] tel:[phone] [facility] [place] Back Pain (chief complaint) Degeneration of cervical intervertebra l discDegenerat ion of lumbar or lumbosacral intervertebra l discMyalgia and myositis, unspecified No Information Attending Physician: Rome Yadav [facility] [address] [place], [address]. tel:[phone] alist: Hawk Ramos, [facility] [address] [place] [address] [address], [place], [address]. tel:[phone] Provider: Zeeshan Enriquez, [address] [place], [address]. tel:[phone] [facility], [address] [place] [address], [id number] , tel:[phone] [facility] [place] [facility] (chief complaint) Degeneration of cervical intervertebra l discPostlamin ectomy syndrome of cervical regionDegener ation of lumbar or lumbosacral intervertebra l discMyalgia and myositis, unspecified 5 No Information Attending Physician: Rome Yadav, [address], [place], [address]. tel:[phone] alist: Hawk Ramos, [facility] [address] [place] [address] [address], [place], [address]. tel:[phone] Provider: Zeeshan Enriquez, [address] [place] [address], [address]. tel:[phone] Family History Family Member Type Diagnosis Age At Onset Father Problem (finding) Back pain Father Problem (finding) Neck pain Payers Payer name Insurance type Covered democrat ID James ojeda(s) [facility] [id number] Social History Type Description Quantity Date Captured [...] Of Treatment Date Type Action Status Goal AST (SGOT). Due on due Goal UDT. Due on due Goal ALT (SGPT). Due on due Goal OUTREACH ANALYST Scanned. Due on due Goal Creatinine. Due on due Goal Order Annual PT. Due on due Goal SALES SUPPORT ASSISTANT Paperwork. Due on due Goal Unhealthy drug u se screening. Due on due Goal OARS. Due on due Goal Review Allergy List. Due on due Goal Medication Recon ciliation. Due on due Goal Tobacco Use. Due on due Goal Hepatitis C screening. Due o n due Goal FIT-DNA. Due on due Goal Zoster vaccine (1st). Due on due Goal CT-Colonography. Due on due Goal Weight. Due on d ue Goal FIT. Due on due Goal Tobacco screening. Due on due Goal Height. Due on d ue Goal Update Social History. Due o n due Goal PHQ-9. Due on du e Goal Order Annual PT. Due on due Goal ALT (SGPT). Due on due Goal OUTREACH ANALYST Scanned. Due on due Goal UDT. Due on due Goal Creatinine. Due on due Goal OARS. Due on due Goal AST (SGOT). Due on due Goal SALES SUPPORT ASSISTANT Paperwork. Due on due Goal Review Allergy [...] Order Annual PT. Due on due Goal OUTREACH ANALYST Scanned. Due on due Goal Weight. Due on d ue Goal Creatinine. Due on due Goal OARS. Due on due Goal Tobacco Use. Due on due Goal Update Social History. Due o n due Goal Hepatitis C screening. Due o n due Goal Medication Recon ciliation. Due on due Goal SALES SUPPORT ASSISTANT Paperwork. Due on due Referral Ordered: [facility] (related to Myositis, unspecified) ordered Referral Referred To: [facility] [address] [place], [place], [id number] Ordered: Referrals: [facility]. Consult [...] managed on fentanyl patches 12mcg/hr q72h and [place] 10-325 6/day, prescribed by Dr. Rome Yadav. [...] Rome Yadav. Previously an established patient at [facility]. Last seen 07/09/2020. Ongoing neck and back pain persists, tolerable with medication. Denies any new concerns.Reports current medication regimen provides at least 50% pain relief. Patient states that he is not finding as much benefit with fentanyl patch as he would like. He finds more benefit with his [place] medication. Denies any SE with current medication [...] fatigue, fever and incontinence (urinary). Widespread pain Duration: chroni c. Location of [...] (urinary). Widespread pain Severity level i s 6. [...] [place] [facility] [place] fl[place] his back spending a [...] include ice and lying down. Widespread pain Duration: chroni c. Location of [...] Brendan is meeting with us today via [facility] for following up and medication [...] today. No other concerns today. Widespread pain Severity level i s 7. Duration: chronic. The patient describes it as sharp, achy, burning, tingling and numbness. It occurs persistently. The problem is stable. Symptom is aggravated by most daily activities. Relieving factors include massage and rest. Widespread pain (comments) Brendan returns for follow [...] further questions or other concerns. Widespread pain (comments) Brendan is here today [...] 600mg 6/day. He met with someone at [facility] for an evaluation to help with his disability appeal. He has been unable to work for 4 years d/t low back pain.He has some interest in switching from [place] to [place]. His mother is present during today's OV. Widespread pain (comments) Brendan presents for follow up and medication refills. He has not been seen since 07-19-17. He is prescribed [place] and Fentanyl through PCP. He follows up [...] PCP requested that he f/u here at [facility] to make sure he is doing everything [...] with his PCP on 11/23. Widespread pain (comments) Brendan is here for a followup and medication refill. He presents with #2 Fentanyl- on track and #8 [place]- surplus. Medications provide 60-65% relief from pain and improves function. States Fentanyl is effective at relieving pain, however is having difficulty keeping them on. C/o increased left GTB pain and may complete GTB injection at [facility] next week. Cervical and Lumbar MRI was completed at [facility] last week. States damage in cervical has worsen and surgery seems inevitable. He has an appointment with neurosurgeon next week. SCS is not recommended at this time d/t possibility of surgery. States PCP may be willing to manage opioid medication d/t long distance needed to drive to [facility] every month. Widespread pain Severity level i s 5 [...] and medication refill. He presents with #8 [place] and #3 Fentanyl- surplus. Medications provide 70% relief from pain. He states he did not notice a difference with Fentanyl patch, believes not as effective. He has completed pain psych eval last week and has 1 session left of PT. Widespread pain Severity level i s 5. [...] negatives include diarrhea and fever. Widespread pain Severity level i s 8. [...] refills. Patient has #1 OxyContin and #3 [place] remaining today - short 1 day of both medications. Reports 70% relief from the medication and improves function. Has completed about 5 sessions of PT and is going okay. [facility] and provided 98% pain relief. Concerned about insurance coverage of medications. Previous tried morphine ER and exprienced lightheadedness. Widespread pain Severity level i s 8-9. Duration: chronic. Location of the pain is widespread. The patient describes it as sharp, achy, burning and tingling. It occurs persistently. The problem is stable. Symptom is aggravated by lying down. Relieving factors include massage, rest, cold and Rx Meds. Associated symptoms include fatigue and incontinence (urinary). Pertinent negatives include diarrhea and fever. Widespread pain (comments) Memo chavez is here for follow-up and medication refill. Patient has #8 [place] (on track) and no MSER (3 tabs [...] his right shoulder blade. Reports surgeon at [facility] (Dr. Claudio) recommends lumbar and cervical fusion. Current fusion is at C5-6. Thought PT was scheduled by our clinic. Widespread pain (comments) Brendan is here for a f/u for his widespread pain. He is not currently prescribed any opioids by [facility].He presents today with a migraine, and feels [...] diarrhea, fever and incontinence (urinary). Widespread pain Severity level i s 8. [...] cold and Rx Meds. Widespread pain (comments) Here for follow-up and would like [facility] to take over prescibing medications. Considers medical [...] Pertinent negatives include diarrhea, fatigue and fever. Widespread pain (comments) Brendan is in for a f/u regarding his chronic pain. C/o widespread pain that is worst in his neck and lower back. He is not currently prescribed any medication through [facility] and has not been seen here since 10/2014. C/o widespread pain and fibromyalgia. Currently takes [place] QID and OxyContin BID and states if [...] contract with PMD. No other concerns today. Back Pain Severity level i s 7. [...] 10 at best. He continues with 4 [place] per day and occasional Percocet use (recieves #36 tabs per month, per the [place] [facility]). He has not tried long acting medication. Back Pain Severity level i s 6. Duration: chronic. The problem is worsening. It occurs persistently. Location of pain is middle back, lower back, arms, legs and neck.The patient describes the pain as an ache, numbness, sharp and pins and needles. Symptoms are aggravated by sitting, standing and walking. Symptoms are relieved by rest. Back Pain (comments) Pt is new t [...] reports issues with vision as well as [place] Palsy and reports he sees a neurologist at [facility].He is mostly interested in medication management and notes his pcp would perhaps continue to take over prescribing if we could make suggestions for his pain. He states he recently filled [place] 7.5/325mg and takes this QID. He states this is not enough for his pain. He tried Percocet in the past with increase in fatigue. He states he tried and failed gabapentin. He has not tried lyrica. He has not tried long acting opioids. He has been on opioids for the last year. Functional Status Date Functional Assessmen t No [...] in [address] Ramos of [facility]. 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 Rome Yadav. [...] Mental Status Date Cognitive Assessment Orientation - [place] ed to time, place, person, situation. Patient Care Teams Name Effective Dates (start - stop) Status Members No Information
--- OUTSIDE RECORDS SUMMARY | 2024-11-29 09:58 | XMS_ITS | Clinical Summary ---
Author Organization [employer] Address [address] [place] [address] Care Team Providers Care Curing Finisher Name Role Phone Austen Jones MD Primary Care Provider [phone] Alex Galloway MD Unavailable [phone] Allergies Active Allergy Reactions Criticality Noted Date Comments Hymenoptera Allergenic Extract 12/13 Lactose Diarrhea 10/08/2014 Lactase 05/31/2006 [place] Hives Medium 03/21/2017 Unlisted Allergen (Include D etail In Comments) Edema 06/29/2016 Pet Dander Venom-Honey Bee Edema 10/08/2014 Medications fluticasone (50 mcg per actuation) nasal solution (FLONASE)Indicati ons:Allergic rhinitis due to pollen, unspecified seasonality Inhale 2 Sprays into both nostrils BY INTRANASAL ROUTE once daily. 48 mL 019 Active blood sugar diagnostic (Blood Glucose Test) stripIndications: Hypoglycemic disorder Dispense test strips covered by the patient insurance. Test 1 times per day or when feeling low glucose symptoms. Diagnosis of hypoglycemia. 100 Each 1 024 Active Blood-Glucose Meter (OneTouch Ultra2 Meter)Indications :Hypoglycemic disorder Dispense glucose meter, test strips and lancets covered by the patient insurance. Test times per day. 1 Each 024 Active SUMAtriptan (IMITREX) 25 mg tabletIndications :New persistent daily headache Take 1-4 Tablets (25-100 mg) by mouth 2 times daily if needed for Migraine. Give at minimum 2hrs apart. Max Dose: 200mg per 24hrs. 20 Tablet 5 Active lidocaine (Lidoderm) 5 % topical patchIndications: Lumbar radiculopathy Apply 1 patch to painful area of skin for up to 12 hours within a 24-hour period. 30 Patch 3 Active dextromethorphan- bupropion 45-105 mg tabletIndications :Moderate episode of recurrent major depressive disorder (HC) Take 1 Tablet by mouth once daily in the morning for 3 days, THEN 1 Tablet two times daily. 60 Tablet 2 025 2025 Active fentaNYL 12 mcg/hr transdermal patchIndications: Neck pain, chronic,Cervical radicular pain Apply 1 Patch on dry, clean, hairless skin every 72 hours. 10 Patch Active HYDROcodone-aceta minophen (10-325 mg/tablet)Indicat ions:Neck pain, chronic TAKE ONE TABLET BY MOUTH EVERY FOUR HOURS NEEDED FOR PAIN 150 Tablet Active atorvastatin 20 mg tabletIndications :Hypercholesterol emia TAKE 1 TABLET AT BEDTIME FOR CHOLESTEROL 90 Tablet Active ondansetron 8 mg tabletIndications :Nausea and vomiting, unspecified vomiting type Take 1 Tablet (8 mg) by mouth every 8 hours if needed for Nausea/Vomiting . 90 Tablet 2 Active busPIRone 15 mg tabletIndications :Anxiety Take 0.5 Tablets (7.5 mg) by mouth two times daily for 7 days, THEN 1 Tablet (15 mg) two times daily for 7 days, THEN 2 Tablets (30 mg) two times daily. 120 Tablet 1 025 2025 Active fluvoxaMINE 100 mg tabletIndications :Mixed obsessional thoughts and acts,Other depression Take 2 Tablets (200 mg) by mouth once daily. 180 Tablet Active hydrOXYzine HCL 25 mg tabletIndications :Anxiety TAKE ONE OR TWO TABLETS BY MOUTH UP TO TWICE DAILY NEEDED FOR ANXIETY. TAKE DOSES 8 HOURS APART. 90 Tablet Active traZODone 100 mg tabletIndications :Insomnia secondary to chronic pain Take 1-2 Tablets (100-200 mg) by mouth at bedtime. 180 Tablet 1 Active omeprazole 40 mg Delayed-Release capsuleIndication s:Gastritis, presence of bleeding unspecified, unspecified chronicity, unspecified gastritis type,Abdominal pain, epigastric Take 1 Capsule (40 mg) by mouth once daily. Take 30-60 minutes before a meal/food once a day. 83 Capsule 3 025 Active Sodium,Potassium, &Mag Sulfates 17.5-3.13-1.6 gramIndications:C hronic diarrhea,Melena,W eight loss Take as per the instructions included in the kit. 1 Kit 025 Active atorvastatin (LIPITOR) 20 mg tabletIndications :Hypercholesterol emia Take 1 Tablet (20 mg) by mouth at bedtime. For Cholesterol. 90 Tablet 2 024 2024 Discontinued ondansetron (ZOFRAN ODT) 4 mg disintegrating tabletIndications :Nausea and vomiting, unspecified vomiting type Place 1 Tablet (4 mg) on the tongue every 8 hours if needed for Nausea/Vomiting . 30 Tablet 2 024 2024 Discontinued(* Medication adjustment) fluvoxaMINE (LUVOX) 100 mg tabletIndications :Mixed obsessional thoughts and acts,Other depression Take 2 Tablets (200 mg) by mouth once daily. 180 Tablet 025 2024 Discontinued(R eorder (E-cancel not sent)) traZODone (DESYREL) 100 mg tabletIndications :Insomnia secondary to chronic pain Take 1-2 Tablets (100-200 mg) by mouth at bedtime. 180 Tablet 1 025 2024 Discontinued(R eorder (E-cancel not sent)) busPIRone (BUSPAR) 15 mg tabletIndications :Anxiety Take 0.5 Tablets (7.5 mg) by mouth two times daily for 7 days, THEN 1 Tablet (15 mg) two times daily for 7 days, THEN 2 Tablets (30 mg) two times daily. 120 Tablet 1 025 2024 Discontinued(R eorder (E-cancel not sent)) fentaNYL 12 mcg/hr transdermal patchIndications: Neck pain, chronic,Cervical radicular pain Apply 1 Patch on dry, clean, hairless skin every 72 hours. 10 Patch 025 2024 Discontinued HYDROcodone-aceta minophen (10-325 mg/tablet)Indicat ions:Neck pain, chronic Take 1 Tablet by mouth every 4 hours if needed for Pain. 150 Tablet 025 2024 Discontinued hydrOXYzine HCL 25 mg tabletIndications :Anxiety TAKE ONE OR TWO TABLETS BY MOUTH UP TO TWICE DAILY NEEDED FOR ANXIETY. TAKE DOSES 8 HOURS APART. 90 Tablet 025 2024 Discontinued(R eorder (E-cancel not sent)) Active Problems Problem Noted Date Diagnosed Date Hypercholesterolemia 01/02/2024 Overview (01/02/2024): December 2023: previously on Atorvastatin (Lipitor), but off Atorvastatin (Lipitor) LDL was 234, restarting Atorvastatin (Lipitor) 20mg. 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 09/26/2014 S/P cervical C4-7 spinal fusion 04/11/2013 Reflux esophagitis 08/31/2012 Overview (11/13/2024): EGD 08/2012 reflux October 2024: EGD, Dr. Shankar, mucosal erythema of gastric body and duodenum. Pain medication agreement, erx verified 09/02/19 Overview (09/25/2024): Prescriber: Dr. Yadav, Controlled substance signed. 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 Lillian Frey RN, [facility] Refill Nurse Colon polyp 05/18/2011 Overview (05/18/2011): Colonoscopy 05/2011 polyp repeat in 5 years Spasm of muscle 10/01/2009 Temporomandibular joint disorders, unspecified 0 10/12/2007 Degeneration of cervical intervertebral disc 08/2006 Overview (05/20/2022): C5-[address] 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 Overview (12/29/2023): AFFECTS LEFT SIDE OF FACE Chronic, continuous use of opioids Resolved Problems Problem Noted Date Diagnosed Date Resolved Date Cervical disc herniation at C4-5 04/11/2013 06/01/2017 Major depression, recurrent 11/14/2011 09/23/2015 Acute postoperative pain 12/2017 Acute neck pain 03/08/2018 Encounters Date Type Department Care Team Description 11/29/2024 Travel 11/28/2024 Telephone [facility] [address] [place] [address] Austen Jones MD Form 11/26/2024 10:00 AM CDT Office Visit [facility] [address] [place] [address] AndrewteArjun ritchie MD Preoperative Exam (Colonoscopy, [place], Dr. Shankar, 11/29/24) 11/26/2024 Travel 11/22/2024 Telephone [facility] [address] [place] [address] Star Shankar MD Pre Procedure 11/22/2024 Medical Messaging [facility] [address] [place] [address] Star Shankar MD Stools 11/18/2024 Refill [facility] [address] [place] [address] Sheryl Umanzor MD Refill Request (Fluvoxamine) 11/13/2024 8:00 PM CDT Orders Only [place] [address] [facility] [place] [address] Lab, [place] Lab 11/13/2024 9:15 AM CDT Office Visit [facility] [address] [facility] [place] [address] Sheryl Umanzor MD Follow Up; Medication Management 11/13/2024 Travel 11/13/[address] [address] Star Shankar MD Results 11/12/2024 Refill [facility] [address] [place] [address] Austen Jones MD Refill Request (Atorvastatin) 11/09/2024 Lab Requisition [facility] [phone] Star Shankar MD 11/08/2024 12:45 PM CDT Office Visit [facility] at [address] [address] Star Shankar MD 11/08/2024 Orders Only [facility] Scanner 1 scan: (1-Ord) [facility] UPPER GI ENDO, 11/08/2024 11/08/2024 Orders Only [facility] Scanner 1 scan: (1-Ord) [facility] UPPER GI ENDOSCOPY, 11/08/2024 11/07/2024 11:30 AM CDT Office Visit [address] [address] Star Shankar MD Consult (Feeling unwell, nausea - difficulty eating, a few episodes of black stools, symptoms x 2-3 weeks, unable to drink colonoscopy prep (aversion to lemon flavoring)) 11/07/2024 9:55 AM CDT Office Visit [address] [address] Austen Jones MD Follow Up (Having ongoing nausea vomiting and diarrhea/Seeing Dr Shankar today for consultation ); Form (Discuss Paper Work from [employer]) 11/07/[address] [place] [address] Austen Jones MD Questions 11/07/2024 Travel 11/02/2024 Refill [facility] [address] [place] [address] Rome Yadav MD Refill Request (Fentanyl, Hydrocodone-acetaminop hen) 10/29/[address] [address] Austen Jones MD Form 10/29/2024 Nurse Triage [address] [address] Austen Jones MD Vomiting 10/28/2024 9:20 AM CDT Office Visit [address] [address] Rome Yadav MD Musculoskeletal Problem (Follow up back pain and review MRI ) 10/28/2024 Travel 10/18/[address] [address] Austen Jones MD Form (FMLA) 10/16/[address] [address] Sheryl Umanzor MD Refill Request (Hydroxyzine Hcl) 10/10/2024 9:30 AM CDT Ancillary Procedure [address] [address] 10/10/[address] [address] Rome Yadav MD Results (MRI) 10/09/2024 9:15 AM CDT Office Visit [address] [address] Sheryl Umanzor MD Medication Management 10/09/2024 Travel 10/03/2024 9:40 AM CDT Office Visit [address] [place] [address] Rome Yadav MD Musculoskeletal Problem (Follow up low back pain, DAPHNE on 08/06/24) 10/03/2024 Travel 09/25/[address] [address] Rome Yadav MD Refill Request (Fentanyl patch and Hydrocodone) 09/24/[address] [address] Sheryl Umanzor MD Appointment 09/19/2024 1:25 PM CDT Office Visit [address] [address] Austen Jones MD Sleep Problem (Having a hard time sleeping - has a hard time getting to sleep and staying asleep /Pain is too severe. Falling asleep at work.) 09/19/2024 Travel 09/04/2024 9:15 AM COUTURE DRESSMAKER Telemedicine [address] [address] Sheryl Umanzor MD Medication Management; Follow Up; Telehealth 09/03/[address] [address] Rome Yadav MD Refill Request (Fentanyl, Hydrocodone-acetaminop hen) 09/02/[address] [address] Sheryl Umanzor MD Refill Request (Mirtazapine) from Last 3 Months Immunizations Immunization Administration Dates Next Due COVID-19 VACCINE SPIKEVAX (M ODERNA 50MCG/0.5ML) 12YO+ PFS 12/29/2023 COVID-19 vaccine (Moderna 10 0mcg/0.5mL) PF, MDV 06/20/2021,11/05/2020,10/08/2020 Influenza Virus, Unspecified 03/22/2018 Influenza, IIV3 (Age >=3 years) 03/29/2016 Influenza, IIV4 (=>6mos) MDV 04/01/2016 MMR 12/19/1979 Td (Age >=7 Years) 11/07/1989 Tdap 12/29/2023 12/28/2033 Family History Medical History Relation Name Comments Diabetes Father Borderline. Cancer-pancreatic Maternal Grandmother Hypertension Mother Diabetes Paternal Grandfather Diabetes Paternal Uncle Relation Name Status Comments Father Maternal Grandmother Mother Alive Paternal Grandfather Paternal Uncle Social History Tobacco Use Types Packs/Day Years Used Date Smoking Tobacco: Never Smokeless Tobacco: Never Tobacco Cessation:Counseling Given: Yes Alcohol Use Standard Drinks/Week Comments No 0 (1 standard drink = 0.6 oz pur e alcohol) PHQ-2 Answer Date Recorded PHQ-2 TOTAL SCORE 6 11/13/2024 Social Connections Answer Date Recorded Do you often feel lonely or isolated from those around you? 0 12/29/2023 Financial Resource Strain Answer Date R ecorded Difficulty of Paying Living Expenses 3 12/29/2023 Difficulty of Paying Living Expenses Not on file 12/29/2023 Food Insecurity Answer Date Recorded Do you worry your food will run out before you are able to buy more? 1 12/29/2023 Transportation Needs Answer Date Record ed Does lack of transportation keep you from medica l appointments? 1 12/29/2023 Does lack of transportation keep you from work, meetings or getting things that you need? 1 12/29/2023 Housing Stability Answer Date Recorded What is your housing situation today? 1 12/29/2023 Utilities Answer Date Recorded Do you have trouble paying f or utilities (for example, heat, electricity, water, phone)? 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 Gender Identity Not on file Sexual Orientation Not on file Obstetrics History Para Term AB IAB SAB Ectopic Multiple Livin g Live Births 0 0 0 0 0 0 0 0 0 0 0 Last Filed Vital Signs Vital Sign Reading Time Taken Comments Blood Pressure 109/75 11/26/2024 9:53 AM CDT Pulse 97 11/26/2024 9:53 AM CDT Temperature 37.2 C (98.9 F) 11/26/2024 9:53 AM CDT Respiratory Rate 18 11/17/2023 2:17 PM CDT Oxygen Saturation 96% 11/26/2024 9:53 AM CDT Inhaled Oxygen Concentration - - Weight 72.3 kg (159 lb 6.4 oz) 11/26/2024 9:53 A M CDT Height 177.3 cm (5' 9.8) 11/26/2024 9:53 AM CDT Body Mass Index 23 11/26/2024 9:53 AM CDT Plan of Treatment Upcoming Encounters Date Type Department Care Team (Late st Contact Info) Description 12/06/2024 3:05 PM CDT Office Visit [facility] [address] [place] [address] Austen Jones MD [address] [place] [address] 12/30/2024 10:20 AM CDT Office Visit [facility] [address] [place] [address] Austen Jones MD [address] [place] [address] 01/08/2025 11:15 AM CDT Office Visit [facility] [address] [place] [address] Sheryl Umanzor MD [address] [place] [address] Health Maintenance Due Date Last Done Comments Hepatitis B series for 19+ (1 of 3 - 19+ 3-dose series) 1993 COVID-19 vaccine series ( season) 2024 12/29/2023, 06/20/2021, 11/05/2020, Additional history exists Pneumococcal series for age 50+ (1 of 1 - PCV) 2024 Zoster (shingles) series for age 50+ (1 of 2) 2024 Influenza Vaccine (Season Ended) 2025 03/22/2018, 04/01/2016, 03/29/2016 Depression screening for age 12+ 11/13/2025 11/13/2024, 10/10/2024, 10/09/2024, Additional history exists BMI (ht and wt on same day) for age 18+ 11/26/2025 11/26/2024, 04/11/2024, 12/29/2023, Additional history exists Lipids for age 45-75 12/28/2028 12/29/2023, 11/19/2021, 07/06/2020, Additional history exists HIV for age 15-65 12/22/2033 Postponed from 1989 (Patient discretion) Tetanus booster 12/28/2033 12/29/2023, 11/07/1989 Colonoscopy through age 75 11/29/203411/29, 01/01/2024, 05/17/2011, Additional history exists Hepatitis C screening for age 18-79 Completed 12/29/2023 Tdap Completed 12/29/2023 Medical Devices Implanted Type Area Corporate Consultant Device Identifier Shelf Expiration Date Model / Serial / Lot Plate Cerv Ant 25mm [employer] 976-125 - [id number] Implanted:Qty: 1 on 05/30/2006 at [facility] Spine Implants Spine SOFAMOR DANEK 976-125# / / [id number] 18spacer Ross/Canclls 8mm A Lordotic Acf Fd [id number] [[id number]] Implanted:Qty: 1 on 05/30/2006 at [facility] Explanted:at [facility] (Quantity not on file) Spine Musculoskeletal Transplant 03/31/2009 [id number]# / [id number] / [id number] 67putty Dbx 1cc [id number] [[id number]] Implanted:Qty: 1 on 05/30/2006 at [facility] Explanted:at [facility] (Quantity not on file) Spine Musculoskeletal Transplant 03/14/2008 [id number]# / [id number] / Screw Fix 4.0x14 Self Drill - [id number] Implanted:Qty: 4 on 05/30/2006 at [facility] Spine SOFAMOR DANEK 976-614# / / [id number] 56bone Cerv 7mm 4deg [place] W/P [[id number]] Implanted:Qty: 1 on 12/16/2016 by Hawk Ramos MD at [facility] Explanted:at [facility] (Quantity not on file) Spine [place] Spine 08/16/2020 [id number]# / [id number] / [id number] 42bone Cerv 7mm 4deg [place] W/P Implanted:Qty: 1 on 12/16/2016 by Hawk Ramos MD at [facility] Explanted:at [facility] (Quantity not on file) Spine [place] Spine 02/03/2021 [id number]# / [id number] / [id number] bone Matrix 1cc [place] Plus Paste Dbm Implanted:Qty: 1 on 12/16/2016 by Hawk Ramos MD at [facility] Explanted:at [facility] (Quantity not on file) Spine Medtronic Spine/Ortho 08/10/2018 [id number] / [id number] / Screw Cerv Ant 4.0x14mm Aviator Va Slf Drill - [id number] Implanted:Qty: 7 on 12/16/2016 by Hawk Ramos MD at [facility] Spine [place] Spine [id number] / / Screw Cerv Ant 4.0x16mm Aviator Va Slf Drill - [id number] Implanted:Qty: 1 on 12/16/2016 by Hawk Ramos MD at [facility] Spine Chelsi Spine [id number] / / Plate Cerv 3lvl 54mm Aviator Ant - [id number] Implanted:Qty: 1 on 12/16/2016 by Hawk Ramos MD at [facility] Spine Chelsi Spine [id number] / / Procedures Procedure Name Priority Date/Time Associated Diagnosis Comments COLONOSCOPY DIAGNOSTIC Routine 6:50 AM CDT Chronic diarrhea Melena Weight loss STOOL PATHOGEN MULTIPLEX PCR PANEL Routine 11/14/2024 9:42 AM CDT Chronic diarrhea CLOSTRIDIOIDES DIFFICILE TOXIN PCR Routine 11/13/2024 8:00 PM CDT Chronic diarrhea CALPROTECTIN FECAL Routine 11/13/2024 8: 00 PM CDT Chronic diarrhea CRYPTOSPORIDIUM GIARDIA RAPID ANTIGEN Routine 11/13/2024 8:00 PM CDT Chronic diarrhea LAB TRACKING EVENT Routine 11/08/2024 1: 07 PM CDT PATH TISSUE EXAM Routine 11/08/2024 1:07 PM CDT SCAN-ENDOSCOPY 11/08/2024 12:00 AM CDT SCAN-ENDOSCOPY 11/08/2024 12:00 AM CDT C-REACTIVE PROTEIN Routine 11/07/2024 12 :05 PM CDT Chronic diarrhea CBC WITH AUTO DIFFERENTIAL Routine 11/07/2024 12:05 PM CDT Chronic diarrhea MR SPINE LUMBAR WO LOGAN 10/10/2024 9 :46 AM CDT Bulging lumbar disc Lumbar foraminal stenosis Lumbar radiculopathy Lumbar facet arthropathy ANTI HCV Routine 12/29/2023 12:00 PM CDT Need for hepatitis C screening test LIPID PANEL W REFLEX MEASURED LDL Routine 12/29/2023 12:00 PM CDT Screening cholesterol level from Last 3 Months or Most Recently Relevant to Health Maintenance Results * STOOL PATHOGEN MULTIPLEX PCR PANEL (11/14/2024 9:42 AM CDT) Campylobacter NOT Detected NOT Detected 11/15/2024 11:42 AM CDT [facility] Salmonella NOT Detected NOT Detected 11/15/2024 11:42 AM CDT [facility] Shigella NOT Detected NOT Detected 11/15/2024 11:42 AM CDT [facility] Vibrio NOT Detected NOT Detected 11/15/2024 11:42 AM CDT [facility] Yersinia Enterocolitica NOT Detected NOT Detected 11/15/2024 11:42 AM CDT [facility] Shiga Toxin 1 NOT Detected NOT Detected 11/15/2024 11:42 AM CDT [facility] Shiga Toxin 2 NOT Detected NOT Detected 11/15/2024 11:42 AM CDT [facility] Norovirus NOT Detected NOT Detected 11/15/2024 11:42 AM CDT [facility] Rotavirus NOT Detected NOT Detected 11/15/2024 11:42 AM CDT [facility] Stool STOOL SPECIMEN / Unknown Non-Blood / Unknown 11/14/2024 9:42 AM CDT 11/14/2024 9:[address] [facility] - 11/15/2024 11:42 AM CDT This test is a Culture Independent Diagnostic Test (CIDT) therefore isolates are not available for susceptibility testing. Antibiotic treatment is often contraindicated and may be detrimental in cases of enteric infections, thus routine susceptibility testing is not recommended. Star Shankar MD MICROBIOLOGY Final Res ult [facility] [address] [place] [address], * CRYPTOSPORIDIUM GIARDIA RAPID ANTIGEN (11/13/2024 8:00 PM CDT) [facility] GIARDIA AND CRYPTOSPORIDIUM ANTIGEN PANEL SEE NOTE [facility] Comment: CRYPTOSPORIDIUM ANTIGEN, EIA Micro Number: [id number] Test Status: Final Specimen Source: Stool Specimen Quality: Adequate Cryptosporidium: Not Detected Reference Range: Not Detected NOTE: Due to intermittent shedding, one negative sample does not necessarily rule out the presence of a parasitic infection. GIARDIA AND CRYPTOSPORIDIUM ANTIGEN PANEL SEE NOTE [facility] Comment: GIARDIA AG, EIA, STOOL Micro Number: [id number] Test Status: Final Specimen Source: Stool Specimen Quality: Adequate Giardia Result 1: Not Detected Reference Range: Not Detected NOTE: Due to intermittent shedding, one negative sample does not necessarily rule out the presence of a parasitic infection. Stool STOOL SPECIMEN / Unknown 11/13/2024 8:00 PM CDT 11/14/2024 10:15 AM CDT Star Shankar MD MICROBIOLOGY Final Res ult Performing Organization Address City/[facility]/ZIP Co de Phone Number [facility] [address] [place] [address], [facility] [address] [place] [address] * CALPROTECTIN FECAL (11/13/2024 8:00 PM CDT) CALPROTECTIN, STOOL 10 mcg/g [facility]Maryjo [facility], Comment: Reference Range: <50 Normal 50-120 Borderline >120 Elevated Calprotectin in Crohn's disease and ulcerative colitis can be five to several thousand times above the reference population (50 mcg/g or less). Levels are usually 50 mcg/g or less in healthy patients and with irritable bowel syndrome. Repeat testing in 4-6 weeks is suggested for borderline values. Stool STOOL SPECIMEN / Unknown 11/13/2024 8:00 PM CDT 11/14/2024 10:15 AM CDT Star Shankar MD SEND OUTS Final Res ult Performing Organization Address [facility] Co de Phone Number [facility] [address] [place] [address], [facility], [address] [place] [address] * CLOSTRIDIOIDES DIFFICILE TOXIN PCR (11/13/2024 8:00 PM CDT) CLOSTRIDIUM DIFFICILE TOXIN/GDH W/REFL TO PCR SEE NOTE [facility] Comment: CLOSTRIDIUM DIFFICILE TOXIN/GDH W/REFL TO PCR Micro Number: [id number] Test Status: Final Specimen Source: Stool Specimen Quality: Adequate GDH Antigen: Not Detected Toxin A and B: Not Detected COMMENT: No toxigenic C. difficile detected For additional information, please refer to http://education.[employer]/faq/SSZ890 (This link is being provided for informational/educational purposes only.) Stool STOOL SPECIMEN / Unknown 11/13/2024 8:00 PM CDT 11/14/2024 10:15 AM CDT Star Shankar MD MICROBIOLOGY Final Res ult Performing Organization Address City/[facility]/ZIP Co de Phone Number [facility] [address] [place] [address], [facility] [address] [place] [address] * LAB TRACKING EVENT (11/08/2024 1:07 PM CDT) Other (Other) Client Collect / Unknown 11/08/2024 1:07 PM CDT 11/09/2024 3:23 PM CDT Star Shankar MD LAB BILL ONLY Final Res ult Performing Organization Address City/[facility] Co de Phone Number [facility] [address] [place] [address], * PATH TISSUE EXAM (11/08/2024 1:07 PM CDT) Case Report Pathology Report Case: [id number] Authorizing Provider: Star Shankar MD Collected: 11/08/2024 1307 Ordering Location: [facility] Received: 11/11/2024 0817 Pathologist: Nathaniel Siddiqi MD Specimens: A) - Duodenum Biopsy B) - Gastric Biopsy C) - Gastric Biopsy D) - Distal Esophagus Biopsy 11/12/2024 9:43 AM CDT [facility] Final Diagnosis A) DUODENUM, BIOPSY: 1. Normal duodenal mucosa 2. Negative for celiac disease and other enteropathy B) STOMACH, ANTRUM, BIOPSY: 1. Non-erosive reactive gastropathy (see comment) a. Sampling: Antral and body mucosae b. Distribution: Antral mucosa 2. Negative for inflammation, atrophy and Helicobacter C) STOMACH, BODY, BIOPSY: 1. Normal gastric body mucosa 2. Negative for Helicobacter D) ESOPHAGUS, DISTAL, BIOPSY: 1. Normal esophageal squamous mucosa 2. Negative for reflux changes and eosinophilic esophagitis 3. Negative for columnar mucosa 11/12/2024 9:43 AM CDT [facility] at 0943 CDT Comment B) The likely etiology is an ongoing non-inflammatory type mucosal injury due to a chemical type of injury; this may be due to ingestion of non-steroidal anti-inflammator y drugs, aspirin (via prostaglandin-me diated injury), excess alcohol, corticosteroids, or bile/alkaline reflux, the latter usually in the setting of a gastroenteric anastomosis. 11/12/2024 9:43 AM CDT [facility] Clinical Information Mr. Alvarado is a 49 y.o. with epigastric abdominal pain who undergoes upper GI endoscopy. 11/12/2024 9:43 AM CDT [facility] [employer] [facility] ENTRHI LABORATORY Gross Description A) Received in formalin are 7 campos mucosal fragments ranging from 2 mm to 3 mm in greatest dimension, which are entirely submitted in one cassette. It is labeled with the patient's name and designated duodenum. B) Received in formalin are 5 campos mucosal fragments ranging from 3 mm to 8 mm in greatest dimension, which are entirely submitted in one cassette. It is labeled with the patient's name and designated gastric antrum. C) Received in formalin are 6 campos mucosal fragments ranging from 2 mm to 8 mm in greatest dimension, which are entirely submitted in one cassette. It is labeled with the patient's name and designated gastric body. D) Received in formalin are 5 campos mucosal fragments ranging from 2 mm to 8 mm in greatest dimension, which are entirely submitted in one cassette. It is labeled with the patient's name and designated distal esophagus. Sandra Rivera 11/11/2024 8:27 AM 11/12/2024 9:43 AM CDT [facility] [employer] [facility] Microscopic Description The final diagnosis is based on microscopic examination of appropriate sections of all specimens. 11/12/2024 9:43 AM CDT [facility] [employer] [facility] Additional Information Interpreted at [facility], Central Laboratory - [address], [place] [address] 11/12/2024 9:43 AM CDT [facility] ENTRAL LABORATORY Other (Duodenum Biopsy) 11/08/2024 1:07 PM CDT 11/11/2024 8:17 AM CDT Specimen (specimen) GASTRIC BIOPSY SPECIMEN / Unknown 11/08/2024 1:07 PM CDT 11/11/2024 8:17 AM CDT Specimen (specimen) GASTRIC BIOPSY SPECIMEN / Unknown 11/08/2024 1:07 PM CDT 11/11/2024 8:17 AM CDT Specimen (specimen) (Distal Esophagus Biopsy) 11/08/2024 1:07 PM CDT 11/11/2024 8:17 AM CDT Star Shankar MD PATHOLOGY/CYTOLOGY Final Result Performing Organization Address [facility] Co de Phone Number [facility] [address] [place] [address], [place] * SCAN-ENDOSCOPY (11/08/2024 12:00 AM CDT) us Scanner OTHER Final Result * SCAN-ENDOSCOPY (11/08/2024 12:00 AM CDT) us Scanner OTHER Final Result * C-REACTIVE PROTEIN (11/07/2024 12:05 PM CDT) C-REACTIVE PROTEIN <3.0 <8.0 mg/L [facility] kaila Lin Blood BLOOD SPECIMEN / Unknown 11/07/2024 12:05 PM CDT 11/07/2024 12:06 PM CDT Star Shankar MD CHEMISTRY Final Res ult [employer] [facility] [address] [facility] [place] [place] [address], [place] [phone] [facility] [address] [facility] [address] * CBC AND DIFFERENTIAL (11/07/2024 12:05 PM CDT) Pathologist [facility] WHITE BLOOD CELL COUNT 6.8 3.8 - 10.8 Thousand/u L [facility] RED BLOOD CELL COUNT 5.02 4.20 - 5.80 Million/uL [facility] HEMOGLOBIN 15.1 13.2 - 17.1 g/dL [facility] HEMATOCRIT 45.3 38.5 - 50.0 % [facility] MCV 90.2 80.0 - 100.0 fL [facility] MCH 30.1 27.0 - 33.0 pg [facility] MCHC 33.3 32.0 - 36.0 g/dL [facility] Comment: For adults, a slight decrease in the calculated MCHC value (in the range of 30 to 32 g/dL) is most likely not clinically significant; however, it should be interpreted with caution in correlation with other red cell parameters and the patient's clinical condition. RDW 13.3 11.0 - 15.0 % [facility] PLATELET COUNT 258 140 - 400 Thousand/u L [facility] MPV 9.7 7.5 - 12.5 fL [facility] ABSOLUTE NEUTROPHILS 5,222 1,500 - 7,800 cells/uL [facility] ABSOLUTE LYMPHOCYTES 925 850 - 3,900 cells/uL [facility] ABSOLUTE MONOCYTES 605 200 - 950 cells/uL [facility] ABSOLUTE EOSINOPHILS 27 15 - 500 cells/uL [facility] ABSOLUTE BASOPHILS 20 0 - 200 cells/uL [facility] NEUTROPHILS 76.8 % [facility] LYMPHOCYTES 13.6 % [facility] MONOCYTES 8.9 % [facility] EOSINOPHILS 0.4 % [facility] BASOPHILS 0.3 % [facility] Blood BLOOD SPECIMEN / Unknown 11/07/2024 12:05 PM CDT 11/07/2024 12:06 PM CDT us Star Shankar MD HEMATOLOGY Final Res ult [employer] [facility] [address] [place] [address], [facility] [address] [place] [address] * MR SPINE LUMBAR WO (10/10/2024 9:46 AM CDT) Anatomical Region Laterality Modality Spine, LUMBAR SPINE Magnetic Res onance 10/10/2024 10:0 8 AM CDT Impressions 10/10/2024 10:08 AM CDT 1. At L4-L5, similar mild-moderate right neural foraminal narrowing. 2. Multilevel degenerative changes at the remaining levels, also similar to prior exam, without significant spinal canal or neural foraminal stenosis. Dictated by Zeeshan Schwartz MD @ 10/10/2024 10:08:52 AM (Electronically Signed) Narrative 10/10/2024 10:08 AM CDT For Patients: As a result of the Cures Act, medical imaging exams and procedure reports are released immediately into your electronic medical record. You may view this report before your referring provider. If you have questions, please contact your health care provider. INDICATION: Lumbar radiculopathy. TECHNIQUE: Multisequence multiplanar MRI of the lumbar spine without the use of intravenous contrast. COMPARISON: MRI lumbar spine dated 02/09/2023. FINDINGS: Normal vertebral alignment, stature, and intrinsic marrow signal intensity. Similar mild multilevel disc desiccation and height loss. The conus medullaris tapers normally at the T12-L1 level. Multiple and partially imaged renal parenchymal hyperintensities not adequately characterized but similar to prior and most typical for cysts. T12-L1: No significant spinal canal or neural foraminal stenosis. L1-L2: Unchanged small central disc extrusion with cranial subligamentous migration. No significant spinal canal or neural foraminal stenosis. L2-L3: Shallow symmetric disc bulge. No significant spinal canal or neural foraminal stenosis. L3-L4: Shallow symmetric disc bulge. Mild facet joint arthrosis. No significant spinal canal or neural foraminal stenosis. L4-L5: Symmetric disc bulge. Mild facet joint arthrosis. No significant spinal canal stenosis. Similar mild-moderate right neural foraminal narrowing. No significant left neural foraminal narrowing. L5-S1: Symmetric disc bulge. Mild facet joint arthrosis. No significant spinal canal or neural foraminal stenosis. Procedure Note Arjun Schwartz MD - 10/10/2024 For Patients: As a result of the Cures Act, medical imagingexams and procedure reports are released immediately into your electronicmedical record. You may view this report before your referring provider.If you have questions, please contact your health care provider. INDICATION: Lumbar radiculopathy. TECHNIQUE: Multisequence multiplanar MRI of the lumbar spine without the use ofintravenous contrast. COMPARISON: MRI lumbar spine dated 02/09/2023. FINDINGS: Normal vertebral alignment, stature, and intrinsic marrow signalintensity. Similar mild multilevel disc desiccation and height loss. Theconus medullaris tapers normally at the T12-L1 level. Multiple andpartially imaged renal parenchymal hyperintensities not adequatelycharacterized but similar to prior and most typical for cysts. T12-L1: No significant spinal canal or neural foraminal stenosis. L1-L2: Unchanged small central disc extrusion with cranial subligamentousmigration. No significant spinal canal or neural foraminal stenosis. L2-L3: Shallow symmetric disc bulge. No significant spinal canal or neuralforaminal stenosis. L3-L4: Shallow symmetric disc bulge. Mild facet joint arthrosis. Nosignificant spinal canal or neural foraminal stenosis. L4-L5: Symmetric disc bulge. Mild facet joint arthrosis. No significantspinal canal stenosis. Similar mild-moderate right neural foraminalnarrowing. No significant left neural foraminal narrowing. L5-S1: Symmetric disc bulge. Mild facet joint arthrosis. No significantspinal canal or neural foraminal stenosis. IMPRESSION: 1. At L4-L5, similar mild-moderate right neural foraminal narrowing. 2. Multilevel degenerative changes at the remaining levels, also similarto prior exam, without significant spinal canal or neural foraminalstenosis. Dictated by Zeeshan Schwartz MD @ 10/10/2024 10:08:52 AM (Electronically Signed) us Rome Yadav MD MR Final Resu lt * (ABNORMAL) LIPID PANEL W REFLEX MEASURED LDL (12/29/2023 12:00 PM CDT) CHOLESTEROL,TOTAL 334(H) 100 - 199 mg/dL 12/30/2023 5:11 AM CDT [facility] Comment: Cholesterol, Total Reference Ranges Desirable <200 mg/dL Borderline 200-239 mg/dL High >=240 mg/dL TRIGLYCERIDES 321(H) <150 mg/dL 12/30/2023 5:11 AM CDT [facility] HDL CHOLESTEROL 36(L) >40 mg/dL 5:11 AM CDT [facility] NON-HDL CHOLESTEROL 298(H) <145 mg/dl 12/30/2023 5:11 AM T [facility] CHOL/HDL RATIO 9.28(H) <4.50 12/30/2023 5:11 AM CDT [facility] LDL CHOLESTEROL 234(H) <=130 mg/dL 12/30/2023 5:11 AM CDT [facility] VLDL CHOLESTEROL 64(H) <=30 mg/dL 12/30/2023 5:11 AM CDT [facility] PROVIDER ORDERED STATUS FASTING 12/30/2023 5:11 AM T [facility] Blood BLOOD SPECIMEN / Unknown Venipuncture / Unknown 12/29/2023 12:00 PM CDT 12/29/2023 12:02 PM CDT us Austen Jones MD CHEMISTRY Final Res ult [facility] [address] [place] [place] [address], * ANTI HCV (12/29/2023 12:00 PM CDT) HEPATITIS C ANTIBODY Non-Reacti ve Non-React deven 12/30/2023 5:23 AM CDT [facility] Comment:Please note, per www .CDC.gov: If a patient is known to be at high risk of HCV infection, or is symptomatic, and the physician's suspicion of HCV infection is high, HCV RNA testing is often employed and is of diagnostic value, even after an initial negative anti-HCV test result. Blood BLOOD SPECIMEN / Unknown Venipuncture / Unknown 12/29/2023 12:00 PM CDT 12/29/2023 12:02 PM CDT us Austen Jones MD SEND OUTS Final Res ult [facility] [address] [place] [address], [place] from Last 3 Months or Most Recently Relevant to Health Maintenance [place] [id number] [place] Advance Directives * Full Code (Latest Code Status on File) Date Activated Date Inactivated Comments 12/16/2016 11:36 AM 12/17/2016 5:20 PM * Full Code Date Activated Date Inactivated Comments 12/16/2016 5:37 AM 12/16/2016 11:31 AM * Full Code Date Activated Date Inactivated Comments 05/30/2006 1:24 PM 05/31/2006 3:52 PM * Full Code Date Activated Date Inactivated Comments 05/30/2006 8:39 AM 05/30/2006 1:24 PM Care Teams Curing Finisher Relationship Specialty Start Date End Date Austen Jones MD [address] [place] [address] PCP - General Family Practice 12/29/23 [place] [address] [place] [address] Endocrinology Endocrinology 08/01/24
[2024-11-29 10:00] VITALS: BP 124/75; PULSE 73; RESP 16; TEMP 36.1; O2SAT 98; BMI 21.5
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
[2024-11-29 10:37] LABS: Glucose, Point-of-Care* 127 mg/dl (60-115)
== END 2024-11-29 10:41 | disposition home or self-care (01) ==
PROVIDERS: Emergency Provider Student in an Organized Health Care Education/Training Program; PCP Family Medicine
DX: R53.1 Weakness (principal)
CPT/HCPCS: 36415; 82947; 93005; 99282; 99284; J2704